=== PATIENT | male | born 1965 | race Caucasian/White ===

== ENCOUNTER 2019-01-13 12:40 | Emergency (ER) | payer SELFPAY ==
[2019-01-13 12:40] VITALS: BP 157/101; PULSE 82; RESP 18; TEMP 36.8; O2SAT 98
--- NOTE | 2019-01-13 13:15 | DI.RAD.S_ITS ---
PROCEDURE: XR HAND LT MIN 3V INDICATIONS: laceration on dorsal aspect of hand from metal TECHNIQUE: 3 views of the hand(s) acquired. COMPARISON: None. FINDINGS: Bones: No fractures or dislocations. Carpal bones are normally aligned. No suspicious bony lesions. Soft tissues: No suspicious soft tissue calcifications. IMPRESSION: No fracture or foreign body found. Dictated by: Christian Townsend M.D. on 01/13/2019 at 13:59 Approved by: Christian Townsend M.D. on 01/13/2019 at 13:59
[2019-01-13] MEDS: LIDO 1%/SOD BICARB 8.4% (10ML) 10 ML SYRINGE INJ (14:15)
[2019-01-13] MEDS: BACITRACIN OINT 0.9 GM PCKT 1 APPLIC TOP (14:15)
[2019-01-13 15:27] VITALS: BP 145/101; PULSE 70; RESP 18; O2SAT 96
--- NOTE | 2019-01-13 21:32 | ED.SKABFB ---
HPI - Skin/Abscess/Foreign Bdy <ROSMERY Mccabe - Last Filed: 01/13/19 21:53> General Chief complaint: Skin/Abscess/Foreign Body Stated complaint: cut open back of left hand Time Seen by Provider: 01/13/19 13:01 Source: patient Mode of arrival: ambulatory Limitations: no limitations History of Present Illness HPI narrative: This is a 53-year-old male, previous smoker, presents to ED with chief complain of laceration to left dorsal aspect of metacarpal. He reports he had injured his left hand while he was working on a motor home wall. He accidently caught his hand on a sharp screws. He is able to move his fingers for including flexion, extension, lateral deviation. He reports his tetanus immunization was about 3 years ago he had a shoulder surgery. He reports pain is tolerable and had not bled to much. 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 Related Data Previous Rx's Medication Instructions Recorded cephalexin [Keflex] 500 mg PO Q6H 7 Days #28 cap 01/13/19 Allergies Allergy/AdvReac Type Severity Reaction Status Date / Time No Known Drug Allergies Allergy Verified 01/13/19 12:53 Review of Systems <ROSMERY Mccabe - Last Filed: 01/13/19 21:53> Review of Systems General: Denies fever, chills, fatigue, malaise, sweats. HEENT: Denies sinus pain, ear pain, sore throat, difficulty swallowing, dizziness. Respiratory: Denies dyspnea, cough, wheezing, hemoptysis, sputum. Cardiovascular: Denies chest pain, palpitations, orthopnea, edema. Gastrointestinal: Denies nausea, vomiting, abdominal pain, diarrhea, constipation, melena. : Denies dysuria, frequency, incontinence, hematuria, urinary retention. Musculoskeletal: Denies weakness, joint pain or bony pain. Skin: See HPI Neurologic: Denies weakness, headache, numbness, change in speech, confusion, seizures, incoordination. Psychiatric: No concerning psychosocial issues. 12-point review of systems is negative except for those stated above. PFSH <ROSMERY Mccabe - Last Filed: 01/13/19 21:53> Medical History (Updated 01/13/19 @ 21:39 by ROSMERY Mccabe) GERD (gastroesophageal reflux disease) (Acute) Surgical History (Updated 01/13/19 @ 21:39 by ROSMERY Mccabe) History of shoulder surgery (Chronic) Social History (Updated 01/13/19 @ 21:39 by ROSMERY Mccabe) Smoking Status: Former smoker substance use type: marijuana Social History (Updated 01/13/19 @ 21:39 by ROSMERY Mccabe) Smoking Status: Former smoker substance use type: marijuana Exam <ROSMERY Mccabe - Last Filed: 01/13/19 21:53> Narrative Exam Narrative: GEN: Alert, oriented x 3, well appearing and nourished, and in no acute distress. Head: Normal cephalic, atraumatic. No scalp or temporal tenderness, palpable mass or rash. EYES: Pupils are equal, round, and reactive to light and accommodation. Extraocular muscles are intact bilaterally. There is no subconjunctival hemorrhage, exudate and sclera non-icteric. Neck: Trachea in midline. No JVD, non-tender without lymphadenopathy. No masses or thyroid megaly. Supple, non-tender and no meningeal signs. CARDIAC: Normal regular rate and rhythm without murmurs, gallops, or rubs. No chest wall tenderness. No peripheral edema, cyanosis or pallor. Capillary refill is less than 2 seconds. RESPIRATORY: Lungs are cleat to auscultate bilaterally. No cough, wheezes, rales, or rhonchi. No stridor, respiratory distress, increase work of breathing, or accessary muscle used. ABD: Abdomen soft, nontender and non-distended. No guarding or rebound tenderness to palpate. Bowel sounds are normal in all 4 quadrants. There is no palpable masses or organomegaly. EXT: Full painless ROM of all extremities with no loss of sensation, strength, effusion or edema. +2 radial pulses. SKIN: 4.5 cm laceration on L dorsum of metacarpal invoving skin layer without active bleeding. Warm, dry, normal color for patient. NEUROLOGICAL: Alert and oriented to place, time and person. Sensation and motor function intact bilaterally. No facial droops, dysphasia. PSYCHIATRIC: Good judgement and reason, without hallucinations, abnormal affect or abnormal behaviors during the examination. Initial Vital Signs Initial Vital Signs: Vital Signs Temperature 98.3 F 01/13/19 12:40 Pulse Rate 82 01/13/19 12:40 Respiratory Rate 18 01/13/19 12:40 Blood Pressure 157/101 H 01/13/19 12:40 Pulse Oximetry 98 01/13/19 12:40 <Chaz Arevalo DO - Last Filed: 01/14/19 19:24> Initial Vital Signs Initial Vital Signs: Vital Signs Temperature 98.3 F 01/13/19 12:40 Pulse Rate 82 01/13/19 12:40 Respiratory Rate 18 01/13/19 12:40 Blood Pressure 157/101 H 01/13/19 12:40 Pulse Oximetry 98 01/13/19 12:40 Procedures <ROSMERY Mccabe - Last Filed: 01/13/19 21:53> Laceration Repair Laceration 1: Site: hand Side (If applicable): left Size (cm): 4.5 Description: linear Depth: simple, single layer Local Anesthetic: lidocaine 1% and with bicarb Amount of anesthesia used (mL): 3 Pre-repair: wound explored and irrigated extensively Skin layer closed with: nylon Size (cm): 4-0 Number of sutures: 10 Technique: simple, interrupted Course <ROSMERY Mccabe - Last Filed: 01/13/19 21:53> Orders Ordered: Discontinued Medications Bacitracin (Bacitracin) 1 applic TOP NOW ONE Stop: 01/13/19 13:17 Last Admin: 01/13/19 14:15 Dose: 1 applic Lidocaine/Sodium Bicarbonate (Buffered Lidocaine 10 Ml Syr) 10 ml INJ NOW ONE Stop: 01/13/19 13:17 Last Admin: 01/13/19 14:15 Dose: 10 ml Vital Signs - 8 hr 01/13/19 15:27 Pulse Rate 70 Respiratory Rate 18 Blood Pressure [Left Arm] 145/101 H Pulse Oximetry 96 <DO Barbara Bryan Last Filed: 01/14/19 19:24> Orders Ordered: Discontinued Medications Bacitracin (Bacitracin) 1 applic TOP NOW ONE Stop: 01/13/19 13:17 Last Admin: 01/13/19 14:15 Dose: 1 applic Lidocaine/Sodium Bicarbonate (Buffered Lidocaine 10 Ml Syr) 10 ml INJ NOW ONE Stop: 01/13/19 13:17 Last Admin: 01/13/19 14:15 Dose: 10 ml Vital Signs - 8 hr 01/13/19 15:27 Pulse Rate 70 Respiratory Rate 18 Blood Pressure [Left Arm] 145/101 H Pulse Oximetry 96 [facility] - Skin/Abscess/Foreign Bdy <ROSMERY Mccabe - Last Filed: 01/13/19 21:53> Differential Diagnosis Likely other (laceration) Medical Records Attestation: I reviewed the patient's medical records. Imaging Data XR-L hand: Radiologist's impression: [address] [address] XRay Report Signed Patient: Gaurang Dupont MMR#: [id number] : 1965Acct:[id number] Age/Sex: 53 / MDate of Service: 01/13/19 Loc: ED Accession Number: [id number] Procedure: XR hand LT min 3V Ordering Provider: Melquiades Chang PROCEDURE: XR HAND LT MIN 3V INDICATIONS: laceration on dorsal aspect of hand from metal TECHNIQUE: 3 views of the hand(s) acquired. COMPARISON: None. FINDINGS: Bones: No fractures or dislocations. Carpal bones are normally aligned. No suspicious bony lesions. Soft tissues: No suspicious soft tissue calcifications. IMPRESSION: No fracture or foreign body found. Dictated by: Christian Townsend M.D. on 01/13/2019 at 13:59 Approved by: Christian Townsend M.D. on 01/13/2019 at 13:59 [facility] Narrative Medical decision making narrative: This is a pleasant 53-year-old gentleman presents to ED with 4.5 cm of laceration on dorsum aspect of the left metacarpal region. His tetanus immunization is up-to-date as of last than 5 years. He dominant hand is right but he is an ambidextrous. The laceration was sustained when his left hand accidentally got caught on a sharp screw when he was working on a motor home wall. X-ray test was obtained and it showed no fracture or dislocation, or foreign body noted on affected hand. He had soaked his hand in Hibiclens solution for at least 20 minutes. The laceration has repaired by simple interrupted [id number] using nylon 4.0. Patient was discharged to home with return precautions including signs and symptoms for infection. He was prescribed Keflex 500 mg q.i.d. dosing for 7 days to prevent infection. Wound care was done and advised not to soak his hand in water or uses and excessive the is this may cause tearing the suture. Patient advised to follow with his primary care physician in 2-3 days for wound check and suture should be removed in about 7 days. Patient had no questions at this time and agrees with the treatment plan. Discharge Plan Departure Patient Disposition: Home Clinical Impression: Laceration of hand, left Qualifiers: Encounter type: initial encounter Foreign body presence: without foreign body Qualified Code(s): S61.412A - Laceration without foreign body of left hand, initial encounter Discharge Date/Time: 01/13/19 15:38 Interventions: ED Discharge Assessment Last Done: 01/13/19 15:38 Instructions: DI for Laceration Repair -- Simple Activity Restrictions/Additional Instructions: You have been diagnosed with [laceration on left hand]. What to do: *Take your medications as directed. You're prescriptive has been transmitted to [facility] in [place]. Please complete a course of antibiotic medication last causes allergic reaction. *Follow up with your primary care provider in 2-3 days, call for an appointment. Let them know you were seen in the ED and that we asked you to be seen in follow up for wound recheck. Please to not soak her hand until sutures removed. Please keep your dressing clean and dry and intact. Keep this dressing on for 24 hours. After 24 hours, he can remove the dressing clean with soap and water, next dry with the paper towel, apply antibiotic medication and cover with Band-Aid. Please monitor for signs and symptoms for infection such as increasing redness, swelling, warm to touch, pus-like discharge, pain. *Return to ED if you have any new, worsening, or concerning symptoms, such as [chest pain, breathing difficulty, unable to tolerate fluid, signs and symptoms for infection or any acute concerns]. Prescriptions: New cephalexin [Keflex] 500 mg capsule 500 mg PO Q6H 7 Days Qty: 28 RF: 0 Referrals: [facility] [Outside] <Chaz Arevalo DO - Last Filed: 01/14/19 19:24> [facility] Attestation: I was available for consultation during this patient's emergency department encounter
--- NOTE | 2019-01-13 21:54 | ED_ITS ---
HPI - Skin/Abscess/Foreign Bdy <ROSMERY Mccabe - Last Filed: 01/13/19 21:53> General Chief complaint: Skin/Abscess/Foreign Body Stated complaint: cut open back of left hand Time Seen by Provider: 01/13/19 13:01 Source: patient Mode of arrival: ambulatory Limitations: no limitations History of Present Illness HPI narrative: This is a 53-year-old male, previous smoker, presents to ED with chief complain of laceration to left dorsal aspect of metacarpal. He reports he had injured his left hand while he was working on a motor home wall. He accidently caught his hand on a sharp screws. He is able to move his fingers for including flexion, extension, lateral deviation. He reports his tetanus immunization was about 3 years ago he had a shoulder surgery. He reports pain is tolerable and had not bled to much. 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 Related Data Previous Rx's Medication Instructions Recorded cephalexin [Keflex] 500 mg PO Q6H 7 Days #28 cap 01/13/19 Allergies Allergy/AdvReac Type Severity Reaction Status Date / Time No Known Drug Allergies Allergy Verified 01/13/19 12:53 Review of Systems <ROSMERY Mccabe - Last Filed: 01/13/19 21:53> Review of Systems General: Denies fever, chills, fatigue, malaise, sweats. HEENT: Denies sinus pain, ear pain, sore throat, difficulty swallowing, dizziness. Respiratory: Denies dyspnea, cough, wheezing, hemoptysis, sputum. Cardiovascular: Denies chest pain, palpitations, orthopnea, edema. Gastrointestinal: Denies nausea, vomiting, abdominal pain, diarrhea, constipation, melena. : Denies dysuria, frequency, incontinence, hematuria, urinary retention. Musculoskeletal: Denies weakness, joint pain or bony pain. Skin: See HPI Neurologic: Denies weakness, headache, numbness, change in speech, confusion, seizures, incoordination. Psychiatric: No concerning psychosocial issues. 12-point review of systems is negative except for those stated above. PFSH <ROSMERY Mccabe - Last Filed: 01/13/19 21:53> Medical History (Updated 01/13/19 @ 21:39 by ROSMERY Mccabe) GERD (gastroesophageal reflux disease) (Acute) Surgical History (Updated 01/13/19 @ 21:39 by ROSMERY Mccabe) History of shoulder surgery (Chronic) Social History (Updated 01/13/19 @ 21:39 by ROSMERY Mccabe) Smoking Status: Former smoker substance use type: marijuana Social History (Updated 01/13/19 @ 21:39 by ROSMERY Mccabe) Smoking Status: Former smoker substance use type: marijuana Exam <ROSMERY Mccabe - Last Filed: 01/13/19 21:53> Narrative Exam Narrative: GEN: Alert, oriented x 3, well appearing and nourished, and in no acute distress. Head: Normal cephalic, atraumatic. No scalp or temporal tenderness, palpable mass or rash. EYES: Pupils are equal, round, and reactive to light and accommodation. Extraocular muscles are intact bilaterally. There is no subconjunctival hemorrhage, exudate and sclera non-icteric. Neck: Trachea in midline. No JVD, non-tender without lymphadenopathy. No masses or thyroid megaly. Supple, non-tender and no meningeal signs. CARDIAC: Normal regular rate and rhythm without murmurs, gallops, or rubs. No chest wall tenderness. No peripheral edema, cyanosis or pallor. Capillary refill is less than 2 seconds. RESPIRATORY: Lungs are cleat to auscultate bilaterally. No cough, wheezes, rales, or rhonchi. No stridor, respiratory distress, increase work of breathing, or accessary muscle used. ABD: Abdomen soft, nontender and non-distended. No guarding or rebound tenderness to palpate. Bowel sounds are normal in all 4 quadrants. There is no palpable masses or organomegaly. EXT: Full painless ROM of all extremities with no loss of sensation, strength, effusion or edema. +2 radial pulses. SKIN: 4.5 cm laceration on L dorsum of metacarpal invoving skin layer without active bleeding. Warm, dry, normal color for patient. NEUROLOGICAL: Alert and oriented to place, time and person. Sensation and motor function intact bilaterally. No facial droops, dysphasia. PSYCHIATRIC: Good judgement and reason, without hallucinations, abnormal affect or abnormal behaviors during the examination. Initial Vital Signs Initial Vital Signs: Vital Signs Temperature 98.3 F 01/13/19 12:40 Pulse Rate 82 01/13/19 12:40 Respiratory Rate 18 01/13/19 12:40 Blood Pressure 157/101 H 01/13/19 12:40 Pulse Oximetry 98 01/13/19 12:40 <Chaz Arevalo DO - Last Filed: 01/14/19 19:24> Initial Vital Signs Initial Vital Signs: Vital Signs Temperature 98.3 F 01/13/19 12:40 Pulse Rate 82 01/13/19 12:40 Respiratory Rate 18 01/13/19 12:40 Blood Pressure 157/101 H 01/13/19 12:40 Pulse Oximetry 98 01/13/19 12:40 Procedures <ROSMERY Mccabe - Last Filed: 01/13/19 21:53> Laceration Repair Laceration 1: Site: hand Side (If applicable): left Size (cm): 4.5 Description: linear Depth: simple, single layer Local Anesthetic: lidocaine 1% and with bicarb Amount of anesthesia used (mL): 3 Pre-repair: wound explored and irrigated extensively Skin layer closed with: nylon Size (cm): 4-0 Number of sutures: 10 Technique: simple, interrupted Course <ROSMERY Mccabe - Last Filed: 01/13/19 21:53> Orders Ordered: Discontinued Medications Bacitracin (Bacitracin) 1 applic TOP NOW ONE Stop: 01/13/19 13:17 Last Admin: 01/13/19 14:15 Dose: 1 applic Lidocaine/Sodium Bicarbonate (Buffered Lidocaine 10 Ml Syr) 10 ml INJ NOW ONE Stop: 01/13/19 13:17 Last Admin: 01/13/19 14:15 Dose: 10 ml Vital Signs - 8 hr 01/13/19 15:27 Pulse Rate 70 Respiratory Rate 18 Blood Pressure [Left Arm] 145/101 H Pulse Oximetry 96 <DO Barbara Bryan Last Filed: 01/14/19 19:24> Orders Ordered: Discontinued Medications Bacitracin (Bacitracin) 1 applic TOP NOW ONE Stop: 01/13/19 13:17 Last Admin: 01/13/19 14:15 Dose: 1 applic Lidocaine/Sodium Bicarbonate (Buffered Lidocaine 10 Ml Syr) 10 ml INJ NOW ONE Stop: 01/13/19 13:17 Last Admin: 01/13/19 14:15 Dose: 10 ml Vital Signs - 8 hr 01/13/19 15:27 Pulse Rate 70 Respiratory Rate 18 Blood Pressure [Left Arm] 145/101 H Pulse Oximetry 96 [facility] - Skin/Abscess/Foreign Bdy <ROSMERY Mccabe - Last Filed: 01/13/19 21:53> Differential Diagnosis Likely other (laceration) Medical Records Attestation: I reviewed the patient's medical records. Imaging Data XR-L hand: Radiologist's impression: [address] [address] XRay Report Signed Patient: Gaurang Dupont MMR#: [id number] : 1965Acct:[id number] Age/Sex: 53 / MDate of Service: 01/13/19 Loc: ED Accession Number: [id number] Procedure: XR hand LT min 3V Ordering Provider: Melquiades Chang PROCEDURE: XR HAND LT MIN 3V INDICATIONS: laceration on dorsal aspect of hand from metal TECHNIQUE: 3 views of the hand(s) acquired. COMPARISON: None. FINDINGS: Bones: No fractures or dislocations. Carpal bones are normally aligned. No suspicious bony lesions. Soft tissues: No suspicious soft tissue calcifications. IMPRESSION: No fracture or foreign body found. Dictated by: Christian Townsend M.D. on 01/13/2019 at 13:59 Approved by: Christian Townsend M.D. on 01/13/2019 at 13:59 [facility] Narrative Medical decision making narrative: This is a pleasant 53-year-old gentleman presents to ED with 4.5 cm of laceration on dorsum aspect of the left metacarpal region. His tetanus immunization is up-to-date as of last than 5 years. He dominant hand is right but he is an ambidextrous. The laceration was sustained when his left hand accidentally got caught on a sharp screw when he was working on a motor home wall. X-ray test was obtained and it showed no fracture or dislocation, or foreign body noted on affected hand. He had soaked his hand in Hibiclens solution for at least 20 minutes. The laceration has repaired by simple interrupted [id number] using nylon 4.0. Patient was discharged to home with return precautions including signs and symptoms for infection. He was prescribed Keflex 500 mg q.i.d. dosing for 7 days to prevent infection. Wound care was done and advised not to soak his hand in water or uses and excessive the is this may cause tearing the suture. Patient advised to follow with his primary care physician in 2-3 days for wound check and suture should be removed in about 7 days. Patient had no questions at this time and agrees with the treatment plan. Discharge Plan Departure Patient Disposition: Home Clinical Impression: Laceration of hand, left Qualifiers: Encounter type: initial encounter Foreign body presence: without foreign body Qualified Code(s): S61.412A - Laceration without foreign body of left hand, initial encounter Discharge Date/Time: 01/13/19 15:38 Interventions: ED Discharge Assessment Last Done: 01/13/19 15:38 Instructions: DI for Laceration Repair -- Simple Activity Restrictions/Additional Instructions: You have been diagnosed with [laceration on left hand]. What to do: *Take your medications as directed. You're prescriptive has been transmitted to [facility] in [place]. Please complete a course of antibiotic medication last causes allergic reaction. *Follow up with your primary care provider in 2-3 days, call for an appointment. Let them know you were seen in the ED and that we asked you to be seen in follow up for wound recheck. Please to not soak her hand until sutures removed. Please keep your dressing clean and dry and intact. Keep this dressing on for 24 hours. After 24 hours, he can remove the dressing clean with soap and water, next dry with the paper towel, apply antibiotic medication and cover with Band- Aid. Please monitor for signs and symptoms for infection such as increasing redness, swelling, warm to touch, pus-like discharge, pain. *Return to ED if you have any new, worsening, or concerning symptoms, such as [chest pain, breathing difficulty, unable to tolerate fluid, signs and symptoms for infection or any acute concerns]. Prescriptions: New cephalexin [Keflex] 500 mg capsule 500 mg PO Q6H 7 Days Qty: 28 RF: 0 Referrals: [facility] [Outside] <Chaz Arevalo DO - Last Filed: 01/14/19 19:24> [facility] Attestation: I was available for consultation during this patient's emergency department encounter
== END 2019-01-13 15:38 | disposition home or self-care (01) ==
PROVIDERS: Emergency Provider Nurse Practitioner Family
DX: S61.412A Laceration without foreign body of left hand, initial encounter (principal); W26.8XXA Contact with other sharp object(s), not elsewhere classified, initial encounter
CPT/HCPCS: 12002; 73130; 99282; 99283